=== PATIENT | male | born 1980 | race Caucasian/White ===

== ENCOUNTER 2021-02-14 10:16 | Observation (INO) | payer OTHER ==
[2021-02-14 11:26] LABS: Basophils % (A) 0 %; Eosinophils # (A) 0.1 k/uL (0-0.7); Eosinophils % (A) 1 %; HCT 44.4 % (39.0-53.0); HGB 15.6 gm/dL (13.0-17.5); Lymphocytes % (A) 17 %; MCH 32.3 pg (25.0-35.0); MCV 92.3 fL (80.0-100.0); Mean Platelet Volume 8.1; Monocytes # (A) 0.8 k/uL (0-1.0); Monocytes % (A) 7 %; Neutrophils # (A) 8.2 k/uL (1.3-7.7); Neutrophils % (A) 73 %; Platelet Count 215 k/uL (150-450); RBC 4.81 m/uL (4.30-5.90); RDW 12.7 % (11.5-15.5); WBC 11.2 k/uL (3.8-10.6)
--- NOTE | 2021-02-14 11:30 | ED ---
General Adult HPI - General Chief complaint: Extremity Problem,Nontraumatic Stated complaint: Sliver in hand Time Seen by Provider: 02/14/21 10:31 Source: patient, RN notes reviewed, old records reviewed Mode of arrival: ambulatory Limitations: no limitations - History of Present Illness Initial comments: 40-year-old male sent from urgent care for evaluation of left hand infection and suspected foreign body. Patient states that on which was 3 days prior he had a large wooden splinter into the palmar surface of his left hand. His had associated swelling of the entire hand as well as increased pain and redness. He denies fever. He is a nondiabetic. He states that he knows there is a foreign body still in the hand that he was unable to get out with attempts with tweezers. - Related Data Previous Rx's Medication Instructions Recorded HYDROcodone/APAP 5-325MG [Ellsworth 5] 1 each PO Q4HR PRN #15 tab 09/11/15 Naproxen [Naprosyn] 500 mg PO Q12HR PRN #20 tab 09/11/15 Hydrocodone/Acetaminophen [Ellsworth 1 each PO Q6HR PRN #20 tab 09/12/15 5-325] Tamsulosin [Flomax] 0.4 mg PO DAILY #3 cap 09/12/15 Allergies Allergy/AdvReac Type Severity Reaction Status Date / Time No Known Allergies Allergy Verified 02/14/21 10:20 Review of Systems ROS Statement: Those systems with pertinent positive or pertinent negative responses have been documented in the HPI. ROS Other: All systems not noted in ROS Statement are negative. Past Medical History Past Medical History: No Reported History Additional Past Medical History / Comment(s): kidney stones History of Any Multi-Drug Resistant Organisms: None Reported Past Surgical History: Orthopedic Surgery Additional Past Surgical History / Comment(s): heel surgery Past Psychological History: No Psychological Hx Reported Smoking Status: Current every day smoker Past Alcohol Use History: None Reported Past Drug Use History: Marijuana General Exam Limitations: no limitations General appearance: alert, in no apparent distress Head exam: Present: atraumatic, normocephalic Eye exam: Present: normal appearance, PERRL ENT exam: Present: normal exam Neck exam: Present: normal inspection. Absent: tenderness, meningismus Respiratory exam: Present: normal lung sounds bilaterally. Absent: respiratory distress, wheezes Cardiovascular Exam: Present: regular rate, normal rhythm GI/Abdominal exam: Present: soft. Absent: distended, tenderness, guarding Extremities exam: Present: other (Left hand is swollen, erythematous, tender to palpation. Patient unable to form a fist the soft tissue swelling is in all 5 digits and the palmar surface.) Neurological exam: Present: alert, oriented X3, CN II-XII intact. Absent: motor sensory deficit Psychiatric exam: Present: normal affect, normal mood Skin exam: Present: warm, dry, intact. Absent: cyanosis, diaphoretic Course Vital Signs 02/14/21 02/14/21 10:17 11:18 Temperature 98 F Pulse Rate 95 55 L Respiratory 20 18 Rate Blood Pressure 135/89 133/84 O2 Sat by Pulse 99 97 Oximetry Medical Decision Making - Medical Decision Making 40-year-old male with left ear infection and wouldn't foreign body in the thenar eminence. His left hand is diffusely swollen including all 5 digits. He has erythema to the palm and has some desquamation. There is a puncture site with no visible foreign body. The patient states he did attempt to remove this at home and is certain there is a foreign body within the hand. He denies fever or systemic symptoms. He has a white blood cell count of 11, normal electrolytes, CRP of 1.1 which is mildly elevated. He started on Unasyn and vancomycin. I did discuss case with Mena arias for orthopedics who will evaluate the patient. Patient will be admitted to internal medicine with orthopedic surgery on consult. - Lab Data Result diagrams: 02/14/21 11:05 02/14/21 11:05 Lab Results 02/14/21 02/14/21 02/14/21 Range/Units 11:05 11:05 11:05 WBC 11.2 H (3.8-10.6) k/uL RBC 4.81 (4.30-5.90) m/uL Hgb 15.6 (13.0-17.5) gm/dL Hct 44.4 (39.0-53.0) % MCV 92.3 (80.0-100.0) fL MCH 32.3 (25.0-35.0) pg MCHC 35.0 (31.0-37.0) g/dL RDW 12.7 (11.5-15.5) % Plt Count 215 (150-450) k/uL MPV 8.1 Neutrophils % 73 % Lymphocytes % 17 % Monocytes % 7 % Eosinophils % 1 % Basophils % 0 % Neutrophils # 8.2 H (1.3-7.7) k/uL Lymphocytes # 2.0 (1.0-4.8) k/uL Monocytes # 0.8 (0-1.0) k/uL Eosinophils # 0.1 (0-0.7) k/uL Basophils # 0.0 (0-0.2) k/uL Sodium 139 (137-145) mmol/L Potassium 4.2 (3.5-5.1) mmol/L Chloride 106 (98-107) mmol/L Carbon Dioxide 26 (22-30) mmol/L Anion Gap 7 mmol/L BUN 14 (9-20) mg/dL Creatinine 0.85 (0.66-1.25) mg/dL Est GFR (CKD-EPI)AfAm >90 (>60 ml/min/1.73 sqM) Est GFR (CKD-EPI)NonAf >90 (>60 ml/min/1.73 sqM) Glucose 120 H (74-99) mg/dL Plasma Lactic Acid Dayday 0.8 (0.7-2.0) mmol/L Calcium 9.9 (8.4-10.2) mg/dL Total Bilirubin 0.4 (0.2-1.3) mg/dL AST 20 (17-59) U/L ALT 18 (4-49) U/L Alkaline Phosphatase 109 (38-126) U/L C-Reactive Protein 1.1 H (<1.0) mg/dL Total Protein 7.4 (6.3-8.2) g/dL Albumin 4.2 (3.5-5.0) g/dL Disposition Clinical Impression: Cellulitis of hand, Foreign body (FB) in soft tissue Disposition: ADMITTED IP TO THIS HOSP Condition: Stable Is patient prescribed a controlled substance at d/c from ED?: No Referrals: Abdelrahman Corona DO [Primary Care Provider] - 1-2 days Decision to Admit Reason: Admit from EC Decision Date: 02/14/21 Decision Time: 12:02
--- NOTE | 2021-02-14 11:37 | XR ---
EXAMINATION TYPE: XR hand complete LT DATE OF EXAM: 02/14/2021 COMPARISON: NONE HISTORY: Swelling TECHNIQUE: Three views are submitted. FINDINGS: The osseous structures are intact. The joint spaces are preserved and there is no acute fracture or dislocation. The lateral view adjacent to the pulmonary surface of the proximal phalanx second digit is a nonspecific radio metallic density. IMPRESSION: 1. Nonspecific radio metallic density along the palmar surface proximal phalanx second digit correlat e clinically.
[2021-02-14 11:39] LABS: ALT 18 U/L (4-49); AST 20 U/L (17-59); African American GFR (CKD) >90 (>60 ml/min/1.73 sqM); Albumin 4.2 g/dL (3.5-5.0); Alkaline Phosphatase 109 U/L (38-126); Anion Gap 7 mmol/L; Blood Urea Nitrogen 14 mg/dL (9-20); C Reactive Protein 1.1 mg/dL (<1.0); Calcium 9.9 mg/dL (8.4-10.2); Carbon Dioxide 26 mmol/L (22-30); Chloride 106 mmol/L (98-107); Glucose 120 mg/dL (74-99); Non-African American GFR(CKD) >90 (>60 ml/min/1.73 sqM); Potassium 4.2 mmol/L (3.5-5.1); Sodium 139 mmol/L (137-145); Total Bilirubin 0.4 mg/dL (0.2-1.3); Total Protein 7.4 g/dL (6.3-8.2)
[2021-02-14] MEDS ORDERED: AMPICILLIN-SULBACTAM 3 GM in SODIUM CHLORIDE 0.9% 100 ML IVPB STA (11:39)
[2021-02-14] MEDS ORDERED: NALOXONE 0.4 MG/ML 1 ML VIAL IV PRN (11:56)
[2021-02-14] MEDS ORDERED: HYDROmorphone 0.5 MG/0.5 ML SYRINGE IVP PRN (11:56)
[2021-02-14] MEDS ORDERED: KETOROLAC 15 MG/ML 1 ML VIAL IVP PRN (11:56)
[2021-02-14] MEDS ORDERED: VANCOMYCIN IV PER PHARMACY 1 EACH MISC MISCELLANE PRN (11:56)
[2021-02-14] MEDS: SODIUM CHLORIDE 0.9% 1,000 ML IV SCH (12:27)
[2021-02-14] MEDS ORDERED: VANCOMYCIN 1,500 MG in SODIUM CHLORIDE 0.9% 250 ML IVPB ONE (12:30)
[2021-02-14] MEDS ORDERED: ACETAMINOPHEN TAB 500 MG TAB PO PRN (16:29)
[2021-02-14] MEDS ORDERED: ALPRAZolam 0.25 MG TAB PO PRN (16:29)
[2021-02-14] MEDS ORDERED: TEMAZEPAM 15 MG CAP PO PRN (16:29)
[2021-02-14] MEDS: NICOTINE 14MG/24HR PATCH TRANSDERM SCH (17:52)
[2021-02-14] MEDS: AMPICILLIN-SULBACTAM 3 GM in SODIUM CHLORIDE 0.9% 100 ML IVPB SCH (20:16)
[2021-02-14] MEDS ORDERED: LORazepam 2 MG/ML INJ IV PRN (20:40)
[2021-02-14] MEDS ORDERED: HYDROcodone/APAP 5-325MG 1 EACH TAB PO PRN (20:54)
[2021-02-14] MEDS: HEPARIN SODIUM,PORCINE/PF 5,000 UNIT/0.5 ML SYRINGE SQ SCH (20:55)
[2021-02-14] MEDS: VANCOMYCIN 1,500 MG in SODIUM CHLORIDE 0.9% 250 ML IVPB SCH (20:57)
--- NOTE | 2021-02-14 22:35 | HP ---
HISTORY AND PHYSICAL DATE OF SERVICE: 02/14/2021 I am covering for Dr. Corona. CHIEF COMPLAINT: Sliver in the hand. HISTORY OF PRESENT ILLNESS: This 40-year-old gentleman who was previously healthy except kidney stones, being followed by Dr. 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 Apparently patient had a wood piece lodged in left palm 3 days ago. The patient went to [facility] and wood splinter could not be taken out and the patient taken to [facility] and admitted for further evaluation and treatment. Hand x-ray showed nonspecific radial metallic density in the palmar surface. Orthopedic evaluation is being sought at this time. No chest pain. No palpitations. No fever. PAST MEDICAL HISTORY: History of kidney stones. MEDICATIONS: Prior to admission: Tylenol. ALLERGIES: None. FAMILY HISTORY: No history of heart disease or strokes in the family. SOCIAL HISTORY: History of smoking, history of THC. REVIEW OF SYSTEMS: ENT: No diminished vision. No diminished hearing. CARDIOVASCULAR: No angina. RESPIRATION: No cough GI: As mentioned earlier. NERVOUS SYSTEM: No numbness or weakness. ALLERGY/IMMUNOLOGY: No asthma or hayfever. MUSCULOSKELETAL as mentioned earlier. HEMATOLOGY/ONCOLOGY: No history of anemia. ENDOCRINE: No history of diabetes mellitus or hypothyroidism. CONSTITUTIONAL: As mentioned earlier. DERMATOLOGY: Negative. RHEUMATOLOGY: Negative. PSYCHIATRIC: As mentioned earlier. PHYSICAL EXAMINATION: Alert and oriented x3. Pulse is 50. Blood pressure is 145/87, respiration 15, temperature 98.7, pulse ox 97% on room air. HEENT: Conjunctivae normal. NECK: No JVD. CARDIOVASCULAR: S1, S2 muffled. RESPIRATORY SYSTEM: Breath sounds diminished at the bases. No rhonchi. No crackles. ABDOMEN: Soft. Nontender. LEGS: No edema. No swelling. NERVOUS SYSTEM: Examination of the left hand, some tenderness, swelling and multiple entry wounds possibly with some erythema also present. LABS: WBC 7.2, neutrophils 8.2, glucose 120. iis 1.1. ASSESSMENT: 1. Foreign body of the left palm with wood sliver and with possible cellulitis. 2. Increased WBC. 3. Increased random glucose. 4. History of nephrolithiasis. 5. History of nicotine dependence. 6. History of THC. 7. FULL CODE. RECOMMENDATIONS AND DISCUSSION: This 40-year-old gentleman who presented with multiple complex medical issues, we will monitor the patient closely, continue the current medications, management and symptomatic treatment. I will initiate broad-spectrum IV antibiotics. Unasyn has been initiated. I would also recommend orthopedic surgery evaluation and guarded prognosis because of multiple complex medical issues. Further recommendations to follow. Symptomatic treatment also will be provided. See orders for details. MMODL / IJN: [id number] / MTDD
[2021-02-15] MEDS: SODIUM CHLORIDE 0.9% 1,000 ML IV SCH ×2 (00:08→02:54)
[2021-02-15] MEDS: AMPICILLIN-SULBACTAM 3 GM in SODIUM CHLORIDE 0.9% 100 ML IVPB SCH ×2 (02:54→10:49)
[2021-02-15] MEDS: VANCOMYCIN 1,500 MG in SODIUM CHLORIDE 0.9% 250 ML IVPB SCH ×2 (04:04→11:40)
--- NOTE | 2021-02-15 07:37 | P.HPOR ---
History of Present Illness H&P Date: 02/15/21 This is a 40-year-old male who is admitted for left hand foreign body. Patient states that on 02/12/2021 he was carrying wood when a piece became lodged into the left hand. Patient states that he was unable to remove the sliver and in the following days the left hand became very swollen. Patient states that he presented to an urgent care on 02/14/2021 because he was unable to move his thumb and the fingers of his left hand. Patient states that he was then sent to the emergency room for further management. Patient is seen and evaluated at bedside today and states that his swelling has completely improved after being on IV antibiotics overnight. Patient states that he was never in any pain and now has full motion of the left hand. Patient denies any fever/chills, numbness, weakness or tingling. Patient's past medical history is significant for kidney stones. Review of Systems See HPI. Past Medical History Past Medical History: No Reported History Additional Past Medical History / Comment(s): kidney stones History of Any Multi-Drug Resistant Organisms: None Reported Past Surgical History: Orthopedic Surgery Additional Past Surgical History / Comment(s): heel surgery Past Psychological History: No Psychological Hx Reported Smoking Status: Current every day smoker Past Alcohol Use History: None Reported Past Drug Use History: Marijuana Medications and Allergies Home Medications Medication Instructions Recorded Confirmed Type Acetaminophen Tab [Tylenol Tab] 1,000 mg PO Q6HR PRN 02/14/21 02/14/21 History No Known Home Medications 02/14/21 02/14/21 History Allergies Allergy/AdvReac Type Severity Reaction Status Date / Time No Known Allergies Allergy Verified 02/14/21 12:21 Physical Examination On exam patient is resting comfortably in bed in no acute distress. Patient is alert and oriented 3. There is minimal swelling of the left hand this morning. There is a puncture wound over the thenar eminence of the left hand. There is no active drainage. Minimal erythema. Patient has full range of motion of the left hand. There is no tenderness to palpation. Sensation intact. Left upper extremity is warm and well perfused. Neurovascular status and circulatory status are intact. Exams of the head, neck, right upper extremity and bilateral lower extremities are within normal limits. Results X-rays of the left hand dated 02/14/2021 are negative for any fracture or dislocation. There is a metal foreign body noted over the left index finger, but patient states that that has been there for 20 years. - Labs Labs: Abnormal Lab Results - Last 24 Hours (Table) 02/14/21 02/14/21 Range/Units 11:05 11:05 WBC 11.2 H (3.8-10.6) k/uL Neutrophils # 8.2 H (1.3-7.7) k/uL Glucose 120 H (74-99) mg/dL C-Reactive Protein 1.1 H (<1.0) mg/dL H & H 02/14/21 Range/Units 11:05 Hgb 15.6 (13.0-17.5) gm/dL Hct 44.4 (39.0-53.0) % Coagulation 02/14/21 Range/Units 17:27 INR 1.0 (<1.2) Result Diagrams: 02/14/21 11:05 02/14/21 11:05 Assessment and Plan (1) Foreign body (FB) in soft tissue Current Visit: Yes Status: Acute Code(s): M79.5 - RESIDUAL FOREIGN BODY IN SOFT TISSUE SNOMED Code(s): 596991810 Plan: 1. NPO. 2. Patient is well appearing and afebrile. 3. Planning for left hand I&D and removal of foreign body today with Dr. Matteo Lawler.
[2021-02-15] MEDS ORDERED: DEXAMETHASONE SOD PHOSPHATE 10 MG/ML 1 ML VIAL ONE (07:54)
[2021-02-15] MEDS ORDERED: SUCCINYLCHOLINE CHLORIDE 100 MG/5 ML SYR IV ONE (07:54)
[2021-02-15] MEDS ORDERED: MIDAZOLAM 2 MG/2 ML VIAL ONE (07:54)
[2021-02-15] MEDS ORDERED: LIDOCAINE 1% INJ 10MG/ML (20 ML MDV) ONE (07:54)
[2021-02-15] MEDS ORDERED: ALBUTEROL HFA INHALER INHALATION ONE (07:54)
[2021-02-15] MEDS ORDERED: PROPOFOL 10 MG/ML 20 ML VIAL IV ONE (07:54)
[2021-02-15] MEDS ORDERED: KETOROLAC 15 MG/ML 1 ML VIAL ONE (07:54)
[2021-02-15] MEDS ORDERED: fentaNYL (PF) 50 MCG/ML 2 ML AMP ONE (07:54)
[2021-02-15] MEDS ORDERED: ONDANSETRON 4 MG/2 ML VIAL ONE (07:54)
[2021-02-15] MEDS ORDERED: LACTATED RINGERS 1,000 ML IV ONE (07:58)
[2021-02-15] MEDS: HEPARIN SODIUM,PORCINE/PF 5,000 UNIT/0.5 ML SYRINGE SQ SCH (08:17)
[2021-02-15 08:29] VITALS: RESP 16
--- NOTE | 2021-02-15 08:42 | P.OP ---
Date of Procedure: 02/15/21 Preoperative Diagnosis: foreign body left hand with cellulitis Postoperative Diagnosis: foreign body left hand with cellulitis Procedure(s) Performed: incision and drainage of the left hand and removal of foreign body Anesthesia: ESTELLA Surgeon: Matteo Lawler Ginseng Farmer #1: Mena Bautista Estimated Blood Loss (ml): 5 Pathology: other (cultures x 2) Condition: stable Disposition: PACU Indications for Procedure: this is a 40-year-old gentleman who presented to the emergency room with a foreign body and cellulitis of his left thenar eminence. Patient states that he was working with some wood and had a couple splinters in his left hand. He was admitted to the hospital and placed on IV antibiotics. On examination he was found to have redness pain and swelling in his thenar eminence of his left hand around the site of the foreign body. After lengthy discussion of the surgical nonsurgical treatment options, I recommended incision and drainage of the cellulitis of his left hand as well as removal of the foreign body. Informed consent was obtained. Operative Findings: the operative findings are consistent with a foreign body and cellulitis in the thenar eminence of the left hand. Description of Procedure: the patient was seen in the preoperative area, and the consent was reviewed. The operative site was marked with a skin marker. The patient was then brought to the operating room and given a general anesthetic by the anesthesia department. Tourniquet was placed on his left upper arm and the left upper extremity was then prepped and draped in the usual sterile fashion. A universal timeout was then performed which confirmed the patient's name, surgical site, ALLERGIES, and consent. The limb was then elevated but not exsanguinated and the tourniquet was inflated 250 mmHg. An incision was then made over the thenar eminence of his left hand over the site of the entrance of the foreign body. A small amount of purulence was encountered and this was cultured 2. The foreign body was then removed which was consistent with a small splinter. There area was then explored and no other foreign bodies or purulent material was encountered. There area was then irrigated and closed with 4-0 nylon suture. The tourniquet was released and the patient was transferred to recovery room in stable condition. The anesthesiologist assistant certified TITUS Stafford required due to the complexity of the surgery and the need for a skilled surgical physician assistant.
[2021-02-15] MEDS ORDERED: ONDANSETRON 4 MG/2 ML VIAL IVP PRN (08:44)
[2021-02-15 09:37] VITALS: BP 133/72; PULSE 85; TEMP 98.2
[2021-02-15] MEDS: NICOTINE 14MG/24HR PATCH TRANSDERM SCH (10:19)
[2021-02-15] MEDS ORDERED: VANCOMYCIN TROUGH DUE 1 EACH MISC MISCELLANE ONE (11:00)
[2021-02-15 11:24] LABS: Basophils # (A) 0.02 X 10*3/uL (0.00-0.10); Basophils % (A) 0.2 %; Eosinophils # (A) 0.25 X 10*3/uL (0.04-0.35); HCT 43.6 % (39.6-50.0); HGB 14.4 g/dL (13.0-17.0); Lymphocytes # (A) 2.05 X 10*3/uL (0.90-5.00); Lymphocytes % (A) 24.2 %; MCH 31.3 pg (27.0-32.0); MCV 94.8 fL (80.0-97.0); Mean Platelet Volume 11.2 fL (9.5-12.2); Monocytes # (A) 0.82 X 10*3/uL (0.20-1.00); Monocytes % (A) 9.7 %; Neutrophils # (A) 5.31 X 10*3/uL (1.80-7.70); Neutrophils % (A) 62.7 %; Platelet Count 207 X 10*3/uL (140-440); RDW 12.8 % (11.5-14.5); WBC 8.47 X 10*3/uL (4.50-10.00)
[2021-02-15 11:34] LABS: African American GFR (CKD) >90 (>60 ml/min/1.73 sqM); Non-African American GFR(CKD) >90 (>60 ml/min/1.73 sqM)
[2021-02-15 11:42] LABS: African American GFR (CKD) 107.1 (60.0-200.0); Anion Gap 3.6 mmol/L (4.00-12.00); Calcium 9.1 mg/dL (8.7-10.3); Carbon Dioxide 27.4 mmol/L (21.6-31.8); Non-African American GFR(CKD) 92.4 (60.0-200.0); Potassium 4.4 mmol/L (3.5-5.5)
--- NOTE | 2021-02-15 20:57 | DS ---
DISCHARGE SUMMARY DATE OF SERVICE: 02/15/2021 FINAL DIAGNOSES: 1. Foreign body of the left hand with possible acute cellulitis, status post incision drainage of the left hand with removal of the foreign body. 2. Increased WBC. 3. Increased random glucose. 4. History of nephrolithiasis. 5. History of nicotine dependence. 6. History of THC. 7. FULL CODE. DISCHARGE DISPOSITION: The patient will be discharged in stable condition with guarded prognosis. HISTORY OF PRESENT ILLNESS: This 40-year-old gentleman with past medical history of multiple medical problems, admitted with foreign body of the left hand as well as cellulitis. Orthopedics recommended incision and drainage and removal of the foreign body, wood splinters were removed and the patient improved significantly. Patient is extremely keen on going home at this time. On exam, vitals signs stable. Cardiovascular: S1, S2. Abdomen soft. Nervous System: No focal deficits. Labs are noted. The patient discharged in stable condition. DISCHARGE ADVICE AND MEDICATIONS: 1. Diet is cardiac diet. 2. Activity limited until followup. 3. Follow up with Dr. Corona in 1-2 days. 4. Follow up with Dr. Lawler in 1 week. 5. Augmentin 875 mg p.o. b.i.d. for 5 days. 6. Tylenol p.r.n. MMODL / KARLYN: [id number] /
== END 2021-02-15 14:00 | disposition home or self-care (01) ==
LOC: EC 10:16 → INTOOBSV 11:58 → 4SSUR 11:58 → UNDODISIN 02-15 14:00
PROVIDERS: ADMIT Hospitalist; ATTEND Hospitalist
DX: L03.114 Cellulitis of left upper limb (principal); S60.552A Superficial foreign body of left hand, initial encounter; W45.8XXA Other foreign body or object entering through skin, initial encounter; M79.5 Residual foreign body in soft tissue; Z20.822 Contact with and (suspected) exposure to COVID-19; F17.200 Nicotine dependence, unspecified, uncomplicated; Z79.899 Other long term (current) drug therapy; Z87.442 Personal history of urinary calculi; Z86.59 Personal history of other mental and behavioral disorders
CPT/HCPCS: 10120; 99284; 36415; 80053; 80048; 82565; 83605; 85025 ×2; 80202; 85610; 86140; 87040; 87070; 87205; 87075; 87077; 87186; 87635; 73130; G0378 ×2; S4990 ×2; J2250; J3370 ×2; J1100; J2405; J2001; J3010; J0295 ×2; J1885; J0330; J2704

== ENCOUNTER → 2021-03-04 | Outpatient (CLI) | payer OTHER ==
--- NOTE | 2021-03-05 04:40 | MR ---
EXAMINATION TYPE: MR brain w con DATE OF EXAM: 03/04/2021 COMPARISON: None HISTORY: Migraines CONTRAST: Standard multiplanar, multisequence MRI departmental protocol utilizing 8.5 mL intravenous Gadavist g adolinium contrast. Ventricles have normal size. There is no mass effect nor midline shift. There is no evidence of intra cranial hemorrhage. There is 12 mm rounded fluid signal at the pineal gland in the midline. Brainstem is intact. Corpus callosum appears intact. There is no evidence of posterior fossa mass. Co ntrast images show no pathologic enhancement. There is normal enhancement of the venous sinuses. On the FLAIR images there are 2 small high signal foci at the marc-white matter junction left posteri or frontal lobe. These measure up to 3 mm. The sella turcica is normal. There is no evidence of sellar mass. Pituitary stalk is in the midline. Optic chiasm appears normal. IMPRESSION: Very small high signal foci at the left posterior frontal lobe of doubtful significance. Otherwise negative exam.
--- NOTE | 2021-03-05 04:42 | MR ---
EXAMINATION TYPE: MR angio head wo con DATE OF EXAM: 03/04/2021 COMPARISON: None HISTORY: Migraines MR angiographic images were obtained of the intracerebral arterial circulation without contrast. There is arterial flow in the anterior middle and posterior cerebral arteries. There is arterial flow in both distal internal carotid arteries. There is arterial flow in the vertebrobasilar artery syste m. The right posterior cerebral artery appears to fill mostly through the right posterior communicati ng artery. I see no evidence of intracranial aneurysm or neovascularity. There is no mass effect. There is no ev idence of hemodynamic stenosis. IMPRESSION: Normal MR angiography exam of the brain.
== END | disposition home or self-care (01) ==
LOC: RADMRIMAIN 18:00
PROVIDERS: ATTEND Family Medicine
DX: G43.909 Migraine, unspecified, not intractable, without status migrainosus (principal)
CPT/HCPCS: 70544; 70552; A9585

== ENCOUNTER 2025-01-01 07:28 | Emergency (ER) | payer OTHER ==
[2025-01-01 07:32] VITALS: TEMP 97.1
--- NOTE | 2025-01-01 07:44 | ED ---
Abdominal Pain HPI - General Chief Complaint: Abdominal Pain Stated Complaint: abd pain Time Seen by Provider: 01/01/25 07:28 Source: patient, RN notes reviewed Mode of arrival: ambulatory Limitations: no limitations - History of Present Illness Initial Comments: 44-year-old male presents emergency department chief complaint right side abdominal pain right flank pain. Patient states sudden onset yesterday. Admits slight nausea without current vomiting. Patient denies any fevers or chills. Patient denies any dysuria hematuria patient denies any noted fever no chest pain or arthropathy makes pain feel better or feel worse. - Related Data Home Medications Medication Instructions Recorded Confirmed Ubrogepant [Ubrelvy] 100 mg PO DAILY PRN 01/01/25 01/01/25 Previous Rx's Medication Instructions Recorded Ketorolac [Toradol] 10 mg PO Q8HR #15 tab 01/01/25 Ondansetron Odt [Zofran Odt] 4 mg PO Q8HR PRN #10 tab 01/01/25 Tamsulosin [Flomax] 0.4 mg PO DAILY #7 cap 01/01/25 Allergies Allergy/AdvReac Type Severity Reaction Status Date / Time No Known Allergies Allergy Verified 01/01/25 09:47 Review of Systems ROS Statement: Those systems with pertinent positive or pertinent negative responses have been documented in the HPI. ROS Other: All systems not noted in ROS Statement are negative. Past Medical History Past Medical History: No Reported History Additional Past Medical History / Comment(s): kidney stones History of Any Multi-Drug Resistant Organisms: None Reported Past Surgical History: Orthopedic Surgery Additional Past Surgical History / Comment(s): heel surgery Past Psychological History: No Psychological Hx Reported Smoking Status: Current every day smoker Past Alcohol Use History: None Reported Past Drug Use History: Marijuana General Exam Limitations: no limitations General appearance: alert, in no apparent distress Head exam: Present: atraumatic, normocephalic, normal inspection Neck exam: Present: normal inspection. Absent: tenderness, meningismus, lymphadenopathy Respiratory exam: Present: normal lung sounds bilaterally. Absent: respiratory distress, wheezes, rales, rhonchi, stridor Cardiovascular Exam: Present: regular rate, normal rhythm, normal heart sounds. Absent: systolic murmur, diastolic murmur, rubs, gallop, clicks GI/Abdominal exam: Present: soft, normal bowel sounds. Absent: distended, tenderness, guarding, rebound, rigid Back exam: Present: CVA tenderness (R). Absent: CVA tenderness (L) Course Vital Signs 01/01/25 01/01/25 07:30 11:32 Temperature 97.1 F L Pulse Rate 61 80 Respiratory 20 18 Rate Blood Pressure 151/89 142/77 O2 Sat by Pulse 98 98 Oximetry Medical Decision Making - Medical Decision Making Was pt. sent in by a medical professional or institution (, PA, BICYCLE REPAIR TECHNICIAN, urgent care, hospital, or fdc...) When possible be specific @ -No Did you speak to anyone other than the patient for history (EMS, parent, family, police, friend...)? What history was obtained from this source @ -No Did you review nursing and triage notes (agree or disagree)? Why? @ -I reviewed and agree with nursing and triage notes Were old charts reviewed (outside hosp., previous admission, EMS record, old EKG, old radiological studies, urgent care reports/EKG's, fdc records)? Report findings @ -No old charts were reviewed Differential Diagnosis (chest pain, altered mental status, abdominal pain women, abdominal pain men, vaginal bleeding, weakness, fever, dyspnea, syncope, headache, dizziness, GI bleed, back pain, seizure, CVA, palpatations, mental health, musculoskeletal)? @ -[Differential Abdominal Pain Men: Appendicitis, cholecystitis, diverticulosis, ischemic bowel, pancreatitis, hepatitis, UTI, gastroenteritis, AAA, incarcerated hernia, bowel obstruction, constipation, inflammatory bowel, hepatitis, peptic ulcer disease, splenic infarction, perforated viscus, testicular torsion, this is not meant to be an a ll-inclusive list EKG interpreted by me (3pts min.). @ -None X-rays interpreted by me (1pt min.). @ -[None done CT interpreted by me (1pt min.). @ -CT abdomen pelvis showing evidence of 4 mm UVJ stone on the right U/S interpreted by me (1pt. min.). @ -None done What testing was considered but not performed or refused? (CT, X-rays, U/S, labs)? Why? @ -None What meds were considered but not given or refused? Why? @ -None Did you discuss the management of the patient with other professionals (prof essionals i.e. , PA, BICYCLE REPAIR TECHNICIAN, lab, RT, psych nurse, social work specialist, road mender, teacher, casino surveillance officer, case briefer)? Give summary @ -No Was smoking cessation discussed for >3mins.? @ -No Was critical care preformed (if so, how long)? @ -No Were there social determinants of health that impacted care today? How? (Homelessness, low income, unemployed, alcoholism, drug addiction, transportation, low edu. Level, literacy, decrease access to med. care, penitentiary, rehab)? @ -No Was there de-escalation of care discussed even if they declined (Discuss DNR or withdrawal of care, Hospice)? DNR status @ -No What co-morbidities impacted this encounter? (DM, HTN, Smoking, COPD, CAD, Cancer, CVA, ARF, Chemo, Hep., AIDS, mental health diagnosis, sleep apnea, morbid obesity)? @ -None Was patient admitted / discharged? Hospital course, mention meds given and route, prescriptions, significant lab abnormalities, going to OR and other pertinent info. @ -[Discharge patient provided for right abdominal pain patient found to have ureteral calculus patient's pain is improved patient does not have any obvious signs of infection associate with his leukocytosis more likely to be reactive. Urine culture was sent. Patient discharged with analgesics and close follow-up. Undiagnosed new problem with uncertain prognosis? @ -No Drug Therapy requiring intensive monitoring for toxicity (Heparin, Nitro, Insulin, Cardizem)? @ -No Were any procedures done? @ -No Diagnosis/symptom? @ -Ureteral calculus Acute, or Chronic, or Acute on Chronic? @ -Acute Uncomplicated (without systemic symptoms) or Complicated (systemic symptoms)? @ -Uncomplicated Side effects of treatment? @ -No Exacerbation, Progression, or Severe Exacerbation? @ -No Poses a threat to life or bodily function? How? (Chest pain, USA, CT, pneumonia, PE, COPD, DKA, ARF, appy, cholecystitis, CVA, Diverticulitis, Homicidal, Suicidal, threat to staff... and all critical care pts) @ -No - Lab Data Result diagrams: 01/01/25 07:56 01/01/25 07:56 Lab Results 01/01/25 01/01/25 01/01/25 Range/Units 07:56 07:56 09:36 WBC 21.2 H (3.8-10.6) k/uL RBC 5.14 (4.30-5.90) m/uL Hgb 16.3 (13.0-17.5) gm/dL Hct 48.2 (39.0-53.0) % MCV 93.8 (80.0-100.0) fL MCH 31.7 (25.0-35.0) pg MCHC 33.7 (31.0-37.0) g/dL RDW 12.6 (11.5-15.5) % Plt Count 284 (150-450) k/uL MPV 8.5 Neutrophils % 84 % Lymphocytes % 10 % Monocytes % 5 % Eosinophils % 1 % Basophils % 0 % Neutrophils # 17.9 H (1.3-7.7) k/uL Lymphocytes # 2.0 (1.0-4.8) k/uL Monocytes # 1.0 (0-1.0) k/uL Eosinophils # 0.1 (0-0.7) k/uL Basophils # 0.0 (0-0.2) k/uL Sodium 138 (137-145) mmol/L Potassium 4.2 (3.5-5.1) mmol/L Chloride 103 (98-107) mmol/L Carbon Dioxide 25 (22-30) mmol/L Anion Gap 10 mmol/L BUN 18 (9-20) mg/dL Creatinine 1.22 (0.66-1.25) mg/dL Est GFR (CKD-EPI)AfAm 82 (>60 ml/min/1.73 sqM) Est GFR (CKD-EPI)NonAf 71 (>60 ml/min/1.73 sqM) Glucose 212 H (74-99) mg/dL Calcium 10.3 H (8.4-10.2) mg/dL Total Bilirubin 0.6 (0.2-1.3) mg/dL AST 19 (17-59) U/L ALT 24 (4-49) U/L Alkaline Phosphatase 101 (38-126) U/L Total Protein 7.8 (6.3-8.2) g/dL Albumin 4.6 (3.5-5.0) g/dL Lipase 104 (23-300) U/L Urine Color Light Red Urine Appearance Cloudy (Clear) Urine pH 5.5 (5.0-8.0) Ur Specific [place] 1.018 (1.001-1.035) Urine Protein 1+ H (Negative) Urine Glucose (UA) 1+ H (Negative) Urine Ketones Trace H (Negative) Urine Blood Large H (Negative) Urine Nitrite Negative (Negative) Urine Bilirubin Negative (Negative) Urine Urobilinogen <2.0 (<2.0) mg/dL Ur Leukocyte Esterase Negative (Negative) Urine RBC >182 H (0-5) /hpf Urine WBC 9 H (0-5) /hpf Ur Squamous Epith Cells 1 (0-4) /hpf Urine Bacteria Rare H (None) /hpf Urine Mucus Moderate H (None) /hpf Disposition Clinical Impression: Right ureteral calculus Disposition: HOME SELF-CARE Condition: Stable Instructions (If sedation given, give patient instructions): Kidney Stones (ED) Additional Instructions: Please return to the Emergency Department if symptoms worsen or any other concerns. Prescriptions: Tamsulosin [Flomax] 0.4 mg PO DAILY #7 cap Ketorolac [Toradol] 10 mg PO Q8HR #15 tab Ondansetron Odt [Zofran Odt] 4 mg PO Q8HR PRN #10 tab PRN Reason: Nausea Is patient prescribed a controlled substance at d/c from ED?: No Referrals: None,Stated [Primary Care Provider] - 1-2 days Luke Flynn MD [STAFF PHYSICIAN] - 1-2 days Time of Disposition: 10:28
[2025-01-01] MEDS: ONDANSETRON 4 MG/2 ML VIAL IVP STA (07:50)
[2025-01-01] MEDS: KETOROLAC 15 MG/ML 1 ML VIAL IVP STA ×2 (07:51→10:59)
[2025-01-01] MEDS: HYDROmorphone 0.5 MG/0.5 ML SYRINGE IVP STA ×2 (07:53→10:58)
[2025-01-01] MEDS: SODIUM CHLORIDE 0.9% 1,000 ML IV SCH (07:54)
[2025-01-01 08:13] LABS: Basophils % (A) 0 %; Eosinophils # (A) 0.1 k/uL (0-0.7); Eosinophils % (A) 1 %; HCT 48.2 % (39.0-53.0); HGB 16.3 gm/dL (13.0-17.5); Lymphocytes % (A) 10 %; MCH 31.7 pg (25.0-35.0); MCHC 33.7 g/dL (31.0-37.0); MCV 93.8 fL (80.0-100.0); Mean Platelet Volume 8.5; Monocytes % (A) 5 %; Neutrophils # (A) 17.9 k/uL (1.3-7.7); Neutrophils % (A) 84 %; Platelet Count 284 k/uL (150-450); RBC 5.14 m/uL (4.30-5.90); RDW 12.6 % (11.5-15.5); WBC 21.2 k/uL (3.8-10.6)
[2025-01-01 08:25] LABS: ALT 24 U/L (4-49); AST 19 U/L (17-59); African American GFR (CKD) 82 (>60 ml/min/1.73 sqM); Albumin 4.6 g/dL (3.5-5.0); Alkaline Phosphatase 101 U/L (38-126); Anion Gap 10 mmol/L; Blood Urea Nitrogen 18 mg/dL (9-20); Calcium 10.3 mg/dL (8.4-10.2); Carbon Dioxide 25 mmol/L (22-30); Chloride 103 mmol/L (98-107); Glucose 212 mg/dL (74-99); Lipase 104 U/L (23-300); Non-African American GFR(CKD) 71 (>60 ml/min/1.73 sqM); Potassium 4.2 mmol/L (3.5-5.1); Sodium 138 mmol/L (137-145); Total Bilirubin 0.6 mg/dL (0.2-1.3); Total Protein 7.8 g/dL (6.3-8.2)
--- NOTE | 2025-01-01 08:55 | CT ---
EXAMINATION TYPE: CT abdomen pelvis wo con DATE OF EXAM: 01/01/2025 COMPARISON: Prior CT September 11, 2015 CLINICAL INDICATION: Male, 44 years old with history of abdominal pain right, Right sided abdominal p ain, history of renal stones, TECHNIQUE: CT scan of the abdomen and pelvis is performed without IV contrast, patient injected with mL of ., (n one if empty) Oral contrast used: without Oral Contrast (none if empty) CT DLP: 633.3 mGycm, Automated exposure control for dose reduction was used. FINDINGS: Within the limitations of a noncontrast study, the following observations are made. LUNG BASES: No significant abnormality is appreciated. LIVER/GB: Liver is heterogeneously hypodense consistent with diffuse fatty infiltrative hepatocellula r disease. PANCREAS: No significant abnormality is seen. SPLEEN: No significant abnormality is seen. ADRENALS: No significant abnormality is seen. KIDNEYS: No left-sided renal calculi or hydronephrosis.. There is a 4 mm calculus at right UVJ axial image 87 causing mild right-sided hydronephrosis. BOWEL: No significant abnormality is seen. PROSTATE/SEMINAL VESICLES: Mildly enlarged prostate gland bulging of bladder base is present. LYMPH NODES: No greater than 1cm abdominal or pelvic lymph nodes are appreciated. OSSEOUS STRUCTURES: Mild disc space narrowing and vacuum disc phenomenon at the lumbosacral junction. OTHER: Small fat-containing left inguinal hernia. IMPRESSION: There is 4 mm calculus at right UVJ causing mild right-sided hydronephrosis. [facility], , 01/01/2025 8:53 AM
[2025-01-01 10:11] LABS: Appearance,Urine Cloudy (Clear); Bacteria,Urine Rare /hpf; Bilirubin,Urine Negative (Negative); Blood,Urine Large (Negative); Color,Urine Light Red; Glucose,Urine (UA) 1+ (Negative); Ketones,Urine Trace (Negative); Leukocyte Esterase,Urine Negative (Negative); Mucus,Urine Moderate /hpf; Nitrite,Urine Negative (Negative); PH, Urine 5.5 (5.0-8.0); Protein,Urine 1+ (Negative); RBC,Urine >182 /hpf (0-5); Specific Gravity,Urine 1.018 (1.001-1.035); Squamous Epithelial Cell,Urine 1 /hpf (0-4); Urobilinogen,Urine <2.0 mg/dL (<2.0); WBC,Urine 9 /hpf (0-5)
[2025-01-01] MEDS: ACET/COD 300 MG/30 MG STARTER PACK 6 TAB BTL PO STA (10:58)
[2025-01-01 11:34] VITALS: BP 142/77; PULSE 80; RESP 18
== END 2025-01-01 11:34 | disposition home or self-care (01) ==
LOC: EC 07:28
DX: N13.2 Hydronephrosis with renal and ureteral calculous obstruction (principal); F17.200 Nicotine dependence, unspecified, uncomplicated
CPT/HCPCS: 36415; 80053; 83690; 85025; 81001; 87086; 74176; 99284; 96374; 96375 ×2; 96376 ×2; 96361 ×2; J2405; J1885; J1171